=== PATIENT | male | born 1980 | race American Indian/Alaskan Native ===

== ENCOUNTER 2017-06-21 22:38 | Emergency (ER) | payer SELFPAY ==
[2017-06-21] MEDS ORDERED: NACL 0.9% 500 ML IR ONE (22:55)
[2017-06-21] MEDS ORDERED: TYLENOL PO ONE (23:14)
--- NOTE | 2017-06-22 00:03 | XRay Report ---
FINAL REPORT PROCEDURE: XR HAND 3+V LT TECHNIQUE: Left hand radiographs, AP, lateral, and oblique views. CPT 98948 HISTORY: Lac to 2nd digit, left hand COMPARISON: No prior studies are available for comparison. FINDINGS: Fracture (s) and/or Dislocation(s): None . Alignment: Normal . Joint space(s): Normal . Soft tissues: There is soft tissue swelling of the 2nd digit.. Bone mineralization: Normal . Foreign bodies: None . IMPRESSION: There is no acute bony abnormality. There is soft tissue swelling of the 2nd digit. There is no foreign body..
[2017-06-22] MEDS ORDERED: BOOSTRIX IM ONE (01:47)
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
[2017-06-22 02:17] VITALS: BP 136/86
== END 2017-06-22 02:58 | disposition home or self-care (01) ==
LOC: ED 22:38
DX: S61.211A Laceration without foreign body of left index finger without damage to nail, initial encounter (principal); F17.200 Nicotine dependence, unspecified, uncomplicated; W27.8XXA Contact with other nonpowered hand tool, initial encounter; Y93.9 Activity, unspecified; Y92.9 Unspecified place or not applicable; Y99.9 Unspecified external cause status
CPT/HCPCS: 90471; 90715